=== PATIENT | female | born 1955 | race Caucasian/White ===

== ENCOUNTER 2019-10-01 23:27 | Inpatient (IN) | payer OTHER ==
[~2019-10-01] VITALS: Ht 170.2 cm; Wt 111.6 kg
[2019-10-01 23:41] VITALS: Ht 170.2 cm; Wt 111.6 kg
[2019-10-02 01:16] LABS: BASOPHIL % 1.2 % (0-2)
[2019-10-02 01:20] LABS: PLATELET COUNT 128 x10^3mcL (130-400); RED CELL DISTRIBUTION WIDTH 15.6 % (11.5-14.5)
[2019-10-02 01:26] LABS: CALCIUM 8.6 mg/dL (8.5-10.1); CHLORIDE SERUM 108 mmol/L (98-107); CREATININE SERUM 1.3 mg/dL (0.6-1.0); GFR1 44 mL/min; GLUCOSE SERUM 84 mg/dL (74-106); POTASSIUM SERUM 3.3 mmol/L (3.5-5.1); SODIUM SERUM 144 mmol/L (136-145)
[2019-10-02 01:31] LABS: ALKALINE PHOSPHATASE 99 U/L (46-116); ALT/SGPT 21 U/L (14-59); AST/SGOT 20 U/L (15-37); BILIRUBIN TOTAL 3.12 mg/dL (0.20-1.00); TOTAL PROTEIN, SERUM 6.4 g/dL (6.4-8.2)
[2019-10-02 01:32] LABS: ALBUMIN 2.8 g/dL (3.4-5.0)
[2019-10-02 03:34] LABS: UA SPECIFIC GRAVITY 1.015 (1.005-1.035); microscopic required? YES; urine erythrocyte NEGATIVE (NEGATIVE)
[2019-10-02 03:41] LABS: CREATININE UR 175.3 mg/dL
[2019-10-02 03:56] LABS: UA SPECIFIC GRAVITY 1.015 (1.005-1.035); microscopic required? YES; urine erythrocyte NEGATIVE (NEGATIVE)
[2019-10-02] MEDS ORDERED: ATORVASTATIN CA40 M1 PO (04:08)
[2019-10-02] MEDS ORDERED: ELIQUIS5 MG PO (04:08)
[2019-10-02] MEDS ORDERED: LISINOPRIL40 MG (04:09)
[2019-10-02] MEDS ORDERED: LASIX40 MG PO (04:09)
[2019-10-02] MEDS ORDERED: CARVEDILOL12.5 M1 PO (04:09)
[2019-10-02] MEDS ORDERED: DIGOXIN0.125 M1 PO (04:09)
[2019-10-02] MEDS ORDERED: NATURE'S BLEND F1 MG PO (04:10)
[2019-10-02] MEDS ORDERED: LEADER VITAMI2000 IU PO (04:10)
[2019-10-02] MEDS ORDERED: POTASSIUM CHLO10 MEQ PO (04:10)
[2019-10-02 07:05] VITALS: BP 112/60
[2019-10-02 08:53] VITALS: BP 103/55
[2019-10-02 12:26] VITALS: BP 95/63
[2019-10-02 16:43] VITALS: BP 92/61
[2019-10-02 20:51] VITALS: BP 113/74
[2019-10-03 05:45] VITALS: BP 92/60
[2019-10-03 07:39] LABS: BASOPHIL % 0.7 % (0-2)
[2019-10-03 07:40] LABS: PLATELET COUNT 121 x10^3mcL (130-400); RED CELL DISTRIBUTION WIDTH 15.5 % (11.5-14.5)
[2019-10-03 07:43] LABS: ALBUMIN 2.5 g/dL (3.4-5.0); BILIRUBIN TOTAL 0.9 mg/dL (0.20-1.00); CALCIUM 7.9 mg/dL (8.5-10.1); CARBON DIOXIDE 28.2 mmol/L (21-32); CREATININE SERUM 1.3 mg/dL (0.6-1.0); POTASSIUM SERUM 3.2 mmol/L (3.5-5.1); TOTAL PROTEIN, SERUM 5.9 g/dL (6.4-8.2)
[2019-10-03 09:12] VITALS: BP 77/32
[2019-10-03 10:19] VITALS: BP 98/54
[2019-10-03 14:12] VITALS: BP 115/79
[2019-10-03 16:30] VITALS: BP 110/74
[2019-10-03 21:07] VITALS: BP 92/51
[2019-10-04 05:50] VITALS: BP 96/58
[2019-10-04 09:26] VITALS: BP 116/79
[2019-10-04 15:05] VITALS: BP 116/79
== END 2019-10-04 17:30 | disposition home health service (06) | DRG 871 ==
LOC: ED 23:27 → DU 10-02 04:20
PROVIDERS: Emergency Medicine; Internal Medicine Pulmonary Disease; ADMIT Internal Medicine Pulmonary Disease
DX: A41.9 Sepsis, unspecified organism (principal); N17.0 Acute kidney failure with tubular necrosis; N39.0 Urinary tract infection, site not specified; I69.951 Hemiplegia and hemiparesis following unspecified cerebrovascular disease affecting right dominant side; M62.82 Rhabdomyolysis; I48.91 Unspecified atrial fibrillation; Z79.01 Long term (current) use of anticoagulants; Z68.37 Body mass index [BMI] 37.0-37.9, adult; Z22.322 Carrier or suspected carrier of Methicillin resistant Staphylococcus aureus
CPT/HCPCS: 82962; 83880; 97116-GP; 97530-GP; G0378; J0282; J0696